=== PATIENT | male | born 1945 | race Hispanic/Latino ===

== ENCOUNTER 2022-07-12 21:23 | Inpatient (IN) | payer SELFPAY ==
[~2022-07-12 21:23] MED LIST: Iopamidol-370 76% 500 ML 1 ML ONE
[2022-07-12] MEDS ORDERED: Lidocaine Viscous Sol 2% 15 ml UD Cup ONE (21:45)
[2022-07-12] MEDS ORDERED: Mag-Al 1200 mg/1200 mg/30 ML UDCUP ONE (21:45)
[2022-07-12] MEDS ORDERED: Acetaminophen 500 MG TAB ONE (21:45)
[2022-07-12] MEDS ORDERED: Pantoprazole 40 MG VIAL ONE (21:45)
[2022-07-12] MEDS ORDERED: Ondansetron PF 4 MG/2 ML Vial ONE (21:45)
[2022-07-12 22:10] LABS: #Lymphocytes 0.4 thou/uL (1.20-3.40); #Monocytes 0.1 thou/uL (0.11-0.59); #Neutrophils 5.7 thou/uL (1.40-6.50); %Basophils 0.8 % (0.0-1.0); %Eosinophils 0.6 % (0.0-10.0); %Lymphocytes 6.5 % (21.0-51.0); %Monocytes 1.5 % (0.0-10.0); %Neutrophils 90.7 % (42.0-75.0); Hemoglobin 13.2 g/dL (14.0-18.0); Mean Corpuscular HGB CONC 34.2 g/dL (32.0-36.0); Mean Corpuscular Hemoglobin 30.5 pg (27.0-31.0); Mean Platelet Volume 7.3 fL (7.4-10.4); Platelet Count 176 10x3/uL (130-400); RBC Distribution Width 12.7 % (11.5-14.5); Red Blood Cell (RBC) Count 4.34 mill/uL (4.70-6.10); White Blood Cell (WBC) Count 6.3 10x3/uL (4.8-10.8)
[2022-07-12 22:25] LABS: ALT (SGPT) 125 U/L (8-55); AST (SGOT) 230 U/L (5-34); Albumin 4.1 g/dL (3.4-4.8); Alkaline Phosphatase 139 U/L (40-110); Anion Gap 14 mmol/L (10-20); BUN (Urea Nitrogen) 15 mg/dL (8.4-25.7); Bilirubin, Total 1.5 mg/dL (0.2-1.2); Calc. Creatinine Clearance 0 mL/min (70-130); Calcium 8.1 mg/dL (7.8-10.44); Carbon Dioxide 23 mmol/L (23-31); Chloride 103 mmol/L (98-107); Estimated GFR 92; Globulin 3.2 g/dL (2.4-3.5); Glucose 133 mg/dL (83-110); Lipase 22 U/L (8-78); Potassium 3.8 mmol/L (3.5-5.1); Protein, Total 7.3 g/dL (5.8-8.1); Sodium 136 mmol/L (136-145)
[2022-07-12 22:38] LABS: Bacteria/HPF None Seen HPF (None Seen); Bilirubin Negative (Negative); Blood, Urine 1+ (Negative); Clarity Clear (Clear); Glucose, Urine (Dipstick) Normal (Negative); Ketone, Urine Negative (Negative); Leukocyte Negative Leu/uL (Negative); Mucous/LPF Rare LPF (<2+); Nitrite Negative (Negative); Protein, Urine (Dipstick) 10 mg/dL (Neg-Trace); Squamous Epithelial None Seen HPF (0-3); Urobilinogen Normal mg/dL (Less than 2); WBC/HPF 0-3 HPF (0-3); pH, Urine 6.5 (5.0-9.0)
[2022-07-13 01:25] LABS: Lactic Acid 4.2 mmol/L (0.5-2.2)
[2022-07-13] MEDS ORDERED: Piperacillin/Tazobactam 4.5 GM in Sodium Chloride 0.9% 100 ML IVPB SCH (02:15)
[2022-07-13] MEDS ORDERED: Acetaminophen 325 MG TAB PO PRN (04:10)
[2022-07-13] MEDS ORDERED: Ondansetron ODT 4 MG TAB PO PRN (04:10)
[2022-07-13] MEDS: Sodium Chloride 0.9% 1,000 ML IV SCH ×3 (06:25→21:58)
[2022-07-13] MEDS: Piperacillin/Tazobactam 3.375 GM in Sodium Chloride 0.9% 100 ML IVPB SCH ×3 (06:25→21:58)
[2022-07-13 07:37] LABS: Hemoglobin 12.3 g/dL (14.0-18.0); INR-International Normal Ratio 1.3; Mean Corpuscular HGB CONC 34.3 g/dL (32.0-36.0); Mean Corpuscular Hemoglobin 30.7 pg (27.0-31.0); Mean Corpuscular Volume 89.6 fl (78.0-98.0); Mean Platelet Volume 7.6 fL (7.4-10.4); Platelet Count 132 10x3/uL (130-400); Prothrombin Time 16.7 sec (12.0-14.7); RBC Distribution Width 12.9 % (11.5-14.5); White Blood Cell (WBC) Count 12.1 10x3/uL (4.8-10.8)
[2022-07-13 07:49] LABS: ALT (SGPT) 124 U/L (8-55); ALT (SGPT) 127 U/L (8-55); AST (SGOT) 146 U/L (5-34); AST (SGOT) 150 U/L (5-34); Albumin 3.3 g/dL (3.4-4.8); Albumin 3.4 g/dL (3.4-4.8); Alkaline Phosphatase 104 U/L (40-110); Anion Gap 15 mmol/L (10-20); Anion Gap 17 mmol/L (10-20); BUN (Urea Nitrogen) 18 mg/dL (8.4-25.7); Bilirubin, Total 2.8 mg/dL (0.2-1.2); Calc. Creatinine Clearance 0 mL/min (70-130); Calcium 7.4 mg/dL (7.8-10.44); Carbon Dioxide 19 mmol/L (23-31); Carbon Dioxide 20 mmol/L (23-31); Chloride 107 mmol/L (98-107); Chloride 108 mmol/L (98-107); Estimated GFR 75; Estimated GFR 80; Globulin 2.3 g/dL (2.4-3.5); Globulin 2.6 g/dL (2.4-3.5); Glucose 110 mg/dL (83-110); Lipase 13 U/L (8-78); Potassium 3.1 mmol/L (3.5-5.1); Protein, Total 5.7 g/dL (5.8-8.1); Protein, Total 5.9 g/dL (5.8-8.1); Sodium 140 mmol/L (136-145)
[2022-07-13 08:30] LABS: Band 42 % (5-11); Lymphocytes 6 % (21-51); MDiff Complete? YES; Monocytes 4 % (0-10); Neutrophil 48 % (42-75); RBC Morphology Normal
[2022-07-13] MEDS ORDERED: Famotidine 20 MG TAB PO SCH (09:00)
[2022-07-13] MEDS ORDERED: Levothyroxine Sodium 100 MCG TAB PO SCH (10:00)
[2022-07-13] MEDS ORDERED: Pantoprazole 40 MG VIAL ONE (10:19)
[2022-07-13] MEDS ORDERED: Indomethacin 50 MG SUPP ONE (11:35)
[2022-07-13] MEDS: Pantoprazole 40 MG VIAL IVP SCH (11:37)
[2022-07-13] MEDS ORDERED: Iopamidol 15 ML ONE (11:39)
[2022-07-13] MEDS ORDERED: ePHEDrine 50 MG/ML VIAL ONE (12:02)
[2022-07-13] MEDS ORDERED: Dexamethasone 20 MG/5 ML VIAL ONE (12:02)
[2022-07-13] MEDS ORDERED: Succinylcholine Chloride 100 MG/5 ML SYRINGE FS ONE (12:02)
[2022-07-13] MEDS ORDERED: PROPOFOL 200 MG/20 ML VIAL ONE (12:02)
[2022-07-13] MEDS ORDERED: Rocuronium Bromide 10 MG/ML (10ML VIAL) ONE (12:02)
[2022-07-13] MEDS ORDERED: Ondansetron PF 4 MG/2 ML Vial ONE (12:02)
[2022-07-13 12:38] LABS: SARS-CoV-2 NAA Rapid Test Not Detected (NotDetected)
[2022-07-13] MEDS ORDERED: Magnevist 469MG/ML 20 ML VIAL ONE (12:44)
[2022-07-13] MEDS ORDERED: SUGAMMADEX SODIUM 200 MG/2 ML VIAL ONE (13:03)
[2022-07-13] MEDS ORDERED: Iopamidol 45 ML ONE (13:12)
[2022-07-13] MEDS ORDERED: Piperacillin/Tazobactam 3.375 GM VIAL ONE (14:10)
[2022-07-13] MEDS ORDERED: Sodium Chloride 0.9% 100 ML ONE (14:10)
[2022-07-13] MEDS ORDERED: Ondansetron HCl/PF 4 MG/2 ML Vial IVP PRN (14:13)
[2022-07-13] MEDS ORDERED: Promethazine HCl 25 MG/ML VIAL IM PRN (14:13)
[2022-07-13] MEDS ORDERED: Piperacillin/Tazobactam 3.375 GM in Sodium Chloride 0.9% 100 ML IVPB SCH ×2 (15:15→18:00)
[2022-07-13 15:59] VITALS: BMI 28.2
[2022-07-13] MEDS ORDERED: Morphine 2 MG/ML VIAL SLOW IVP PRN (21:32)
[2022-07-14 05:22] LABS: ALT (SGPT) 90 U/L (8-55); AST (SGOT) 73 U/L (5-34); Albumin 2.9 g/dL (3.4-4.8); Alkaline Phosphatase 58 U/L (40-110); Anion Gap 17 mmol/L (10-20); BUN (Urea Nitrogen) 26 mg/dL (8.4-25.7); Bilirubin, Total 2.4 mg/dL (0.2-1.2); Calc. Creatinine Clearance 58 mL/min (70-130); Carbon Dioxide 16 mmol/L (23-31); Chloride 110 mmol/L (98-107); Estimated GFR 80; Globulin 2.7 g/dL (2.4-3.5); Glucose 168 mg/dL (83-110); Potassium 3.5 mmol/L (3.5-5.1); Protein, Total 5.6 g/dL (5.8-8.1); Sodium 139 mmol/L (136-145)
[2022-07-14 05:26] LABS: Calcium 6.8 mg/dL (7.8-10.44)
[2022-07-14 05:31] LABS: Band 32 % (5-11); Hemoglobin 11.2 g/dL (14.0-18.0); Lymphocytes 2 % (21-51); MDiff Complete? YES; Mean Corpuscular Volume 91.2 fl (78.0-98.0); Mean Platelet Volume 8.5 fL (7.4-10.4); Metamyelocyte 1 % (0-0); Monocytes 4 % (0-10); Neutrophil 61 % (42-75); Platelet Count 111 10x3/uL (130-400); Platelet Morphology Comment Appears Decreased; RBC Distribution Width 13.2 % (11.5-14.5); RBC Morphology Normal; Red Blood Cell (RBC) Count 3.61 mill/uL (4.70-6.10); White Blood Cell (WBC) Count 15.4 10x3/uL (4.8-10.8)
[2022-07-14] MEDS ORDERED: Levothyroxine Sodium 100 MCG TAB PO SCH (06:00)
[2022-07-14] MEDS: Piperacillin/Tazobactam 3.375 GM in Sodium Chloride 0.9% 100 ML IVPB SCH ×3 (06:05→21:37)
[2022-07-14] MEDS: Pantoprazole 40 MG VIAL IVP SCH (08:41)
[2022-07-14] MEDS: Sodium Chloride 0.9% 1,000 ML IV SCH ×2 (08:41→17:55)
[2022-07-14] MEDS: Lactated Ringer's 1,000 ML IV SCH (21:36)
[2022-07-15 05:00] LABS: ALT (SGPT) 63 U/L (8-55); AST (SGOT) 43 U/L (5-34); Albumin 2.9 g/dL (3.4-4.8); Alkaline Phosphatase 61 U/L (40-110); Anion Gap 10 mmol/L (10-20); BUN (Urea Nitrogen) 25 mg/dL (8.4-25.7); Bilirubin, Direct 0.5 mg/dL (0.1-0.3); Bilirubin, Total 0.8 mg/dL (0.2-1.2); Calc. Creatinine Clearance 78 mL/min (70-130); Calcium 7.2 mg/dL (7.8-10.44); Carbon Dioxide 20 mmol/L (23-31); Chloride 112 mmol/L (98-107); Estimated GFR 94; Glucose 137 mg/dL (83-110); Potassium 3.6 mmol/L (3.5-5.1); Protein, Total 5.5 g/dL (5.8-8.1); Sodium 138 mmol/L (136-145)
[2022-07-15 05:06] LABS: Band 20 % (5-11); Hemoglobin 11.3 g/dL (14.0-18.0); Hypochromia SLIGHT = 6-15 cells (100X) (0-5/hpf); Lymphocytes 3 % (21-51); MDiff Complete? YES; Mean Corpuscular HGB CONC 34.3 g/dL (32.0-36.0); Mean Corpuscular Volume 90.5 fl (78.0-98.0); Mean Platelet Volume 8.9 fL (7.4-10.4); Monocytes 15 % (0-10); Neutrophil 60 % (42-75); Platelet Count 107 10x3/uL (130-400); Platelet Morphology Comment Appears Decreased; RBC Distribution Width 13.2 % (11.5-14.5); Reactive Lymphocytes 2 % (0-10); Red Blood Cell (RBC) Count 3.63 mill/uL (4.70-6.10); White Blood Cell (WBC) Count 13.9 10x3/uL (4.8-10.8)
[2022-07-15] MEDS ORDERED: Levothyroxine 150 MCG TAB PO SCH (05:15)
[2022-07-15] MEDS: Piperacillin/Tazobactam 3.375 GM in Sodium Chloride 0.9% 100 ML IVPB SCH ×3 (05:35→22:13)
[2022-07-15] MEDS: Pantoprazole 40 MG VIAL IVP SCH (08:57)
[2022-07-15] MEDS: Lactated Ringer's 1,000 ML IV SCH (11:33)
[2022-07-16 05:07] LABS: Hemoglobin 11.5 g/dL (14.0-18.0); Mean Corpuscular HGB CONC 34.5 g/dL (32.0-36.0); Mean Corpuscular Volume 89.8 fl (78.0-98.0); Platelet Count 119 10x3/uL (130-400); Red Blood Cell (RBC) Count 3.71 mill/uL (4.70-6.10); White Blood Cell (WBC) Count 9.8 10x3/uL (4.8-10.8)
[2022-07-16] MEDS: Piperacillin/Tazobactam 3.375 GM in Sodium Chloride 0.9% 100 ML IVPB SCH ×2 (05:19→15:35)
[2022-07-16 05:23] LABS: Anion Gap 10 mmol/L (10-20); BUN (Urea Nitrogen) 21 mg/dL (8.4-25.7); Calc. Creatinine Clearance 81 mL/min (70-130); Carbon Dioxide 20 mmol/L (23-31); Chloride 111 mmol/L (98-107); Estimated GFR 94; Glucose 93 mg/dL (83-110); Potassium 3.2 mmol/L (3.5-5.1); Sodium 138 mmol/L (136-145)
[2022-07-16 05:33] LABS: Calcium 6.7 mg/dL (7.8-10.44)
[2022-07-16] MEDS ORDERED: Levothyroxine 150 MCG TAB PO SCH (06:00)
[2022-07-16 06:22] LABS: Band 4 % (5-11); Eosinophils 1 % (0-10); Lymphocytes 8 % (21-51); MDiff Complete? YES; Monocytes 3 % (0-10); Neutrophil 84 % (42-75); Platelet Clumps SLIGHT; Platelet Morphology Comment Appears Decreased; Polychromasia SLIGHT = 2-3 cells (100X) (0-2/hpf)
[2022-07-16] MEDS: Pantoprazole 40 MG VIAL IVP SCH (08:48)
[2022-07-16] MEDS ORDERED: Cholecalciferol 1,000 UNITS (25 MCG) TAB PO SCH (09:00)
[2022-07-16 16:38] VITALS: BP 153/63; TEMP 97.6
== END 2022-07-16 17:15 | disposition home or self-care (01) | DRG 444 ==
LOC: ERS 21:23 → 2NO 07-13 01:42 → ERHOLD 07-13 02:02 → 2NO 07-13 15:08
PROVIDERS: ADMIT Student in an Organized Health Care Education/Training Program; ATTEND Hospitalist
PROC: 0FC98ZZ Extirpation of Matter from Common Bile Duct, Via Natural or Artificial Opening Endoscopic (ICD-10-PCS; principal; 2022-07-13)
PROC: 0F9C8ZZ Drainage of Ampulla of Vater, Via Natural or Artificial Opening Endoscopic (ICD-10-PCS; 2022-07-13)
DX: K80.30 Calculus of bile duct with cholangitis, unspecified, without obstruction (principal); A41.51 Sepsis due to Escherichia coli [E. coli]; E87.20 Acidosis, unspecified; Z20.822 Contact with and (suspected) exposure to COVID-19; E89.0 Postprocedural hypothyroidism; Z87.11 Personal history of peptic ulcer disease; Z85.850 Personal history of malignant neoplasm of thyroid; Z90.49 Acquired absence of other specified parts of digestive tract; Z79.899 Other long term (current) drug therapy; Z79.890 Hormone replacement therapy
CPT/HCPCS: 36415; 74177; 74183; 74330; 76705; 80048; 80053; 80076; 81003; 81015; 83605; 83690; 84484; 85025; 85610; 87040; 87077; 87149; 87186; 93005; 96361; 96365; 96375; A9579; C1725; C9113; J0610; J1100; J2405; J2543; J2704; J3490; J7050; J7120; Q9967; U0002